=== PATIENT | male | born 1980 | race Caucasian/White ===

== ENCOUNTER 2017-02-10 22:33 | Emergency (ER) | payer MEDICAID ==
[~2017-02-10] VITALS: Ht 182.9 cm; Wt 81.6 kg
[~2017-02-10 22:33] MED LIST: FLEXERIL10 MG PO; HYDROCODON-ACETAMINO PO; IMODIUM MULTI-S1 TAB PO; INDOCIN25 MG; LEVAQUIN500 MG PO; LORTAB 5/500 501 TAB PO; MEDROL 4MG. DOSE4 MG PO; MOTRIN 400MG.400 MG PO; MOTRIN600 MG PO; NAPROSYN 500MG500 MG PO; NOMEDS; NORCO 325 MG-51 TAB PO; PHENERGAN W/CO473 ML PO; PHENERGAN25 M3 PO; PREDNISONE 20MG20 MG PO; TAMIFLU75 MG PO; TESSALON PERLE100 MG PO; ULTRAM 50 MG TA50 MG PO; VICODIN 7.5/501 EACH PO; ZOFRAN ODT8 M1 PO
[2017-02-10] MEDS ORDERED: PREDNISONE 10MG10 MG PO (22:45)
[2017-02-10] MEDS ORDERED: HYDROCODONE/ACE1 TA5 PO (22:46)
--- OUTSIDE RECORDS SUMMARY | 2017-02-10 23:03 | External Medical Summary Rpt ---
Author Author , ZEB CARRINGTON Address Unknown Phone [email or web address] Care Team Providers Care Assurance Senior Name Role Phone [facility] # [id number], Unavailable Unavailable [facility] # 48794 [facility] Unavailable Unavailable [facility] Unavailable Unavailable [id number] # [phone], [facility] [address] # 0393 Leland Luo Unavailable Unavailable ANGELA SOLANO, Leland Luo III, MD Purpose Continuity of Care Document - 10-13-2009 through 2016 Problems Code Diagnosis DOS Provider Status 843.9 843.9 10-29-2012 [place] [facility] F11.10 Opioid abuse, uncomplicat ed F11.20 Opioid dependence, uncomplicat ed F11.23 Opioid dependence with withdrawal Allergies, Adverse Reactions, Alerts Type Allergy to substance Adverse Reaction to Substance Substance Reaction Severity NO KNOWN ALLERGIES Unknown Unknown Medications Na ND Rx Da Fi Fi Am Da Di Ph RX Ph St me C No te ll ll ou ys ag ar # ys at rm s nt no ma ic us Or Da si cy ia de te s n re d CY 51 04 0 No CL 07 -1 OB 90 5- Lo EN 64 20 ng ZA 42 13 er CA 0 IN Ac E ti 10 ve MG TA BL ET OX 00 10 10 0 19 5 CV 58 No Ac YC 40 -0 -0 .0 S 66 t ti OD 60 3- 3- 00 PH 06 Av ve ON 51 20 20 AR ai E- 20 11 11 MA la AC 1 CY bl ET # e AM IN 05 OP 43 HE 7 N 5- 32 5 00 09 09 0 19 3 CV 58 No Ac 40 -2 -2 .0 S 57 t ti 60 6- 6- 00 PH 63 Av ve 35 20 20 AR ai 70 11 11 MA la 5 CY bl # e 05 43 7 OX 00 09 09 0 29 4 CV 58 No Ac YC 40 -1 -1 .0 S 49 t ti OD 60 9- 9- 00 PH 07 Av ve ON 51 20 20 AR ai E- 20 11 11 MA la AC 1 CY bl ET # e AM IN 05 OP 43 HE 7 N 5- 32 5 AM 00 09 09 0 21 7 CV 58 No Ac OX 78 -1 -1 .0 S 49 t ti IC 12 9- 9- 00 PH 08 Av ve IL 61 20 20 AR ai LI 30 11 11 MA la N 5 CY bl 50 # e 0 MG 05 43 CA 7 PS UL E CA 00 09 09 0 10 3 CV 58 No Ac OM 78 -1 -1 .0 S 49 t ti ET 11 9- 9 PH 09 Av ve PRECIADO 83 20 20 AR ai ZI 00 11 11 MA la NE 1 CY bl # e 25 05 MG 43 7 TA BL ET IB 55 09 09 0 40 20 CV 58 No Ac UP 11 -1 -1 .0 S 49 t ti RO 10 9- 9- 00 PH 12 Av ve FE 68 20 20 AR ai N 30 11 11 MA la 60 5 CY bl 0 # e MG 05 TA 43 BL 7 ET 00 09 09 0 12 3 CV 58 RO Ac 40 -0 -0 .0 S 37 SS ti 60 8- 8- 00 PH 32 ve 35 20 20 AR TR 70 11 11 MA AC 5 CY EY # B 05 43 7 CL 00 09 09 0 30 5 CV 58 RO Ac IN 09 -0 -0 .0 S 37 SS ti DA 33 8- 8- 00 PH 33 ve MY 17 20 20 AR TR CI 10 11 11 MA AC N 1 CY EY HC # B L 15 05 0 43 MG 7 CA PS UL E 00 09 09 0 12 3 CV 58 BU Ac 40 -0 -0 .0 S 37 TL ti 60 8- 8- 00 PH 32 ER ve 35 20 20 AR 70 11 11 MA RO 5 CY SS # TR 05 AC 43 EY 7 PI 00 08 08 2 30 30 CV 58 SC Ac RO 09 -2 -2 .0 S 24 PRECIADO ti XI 30 6- 6- 00 PH 38 CK ve CA 75 20 20 AR M 70 11 11 MA BR 20 1 CY IA # N MG 05 CA 43 PS 7 UL E TI 00 08 08 0 45 15 CV 58 SC Ac ZA 37 -1 -1 .0 S 07 PRECIADO ti NI 80 1- 1- 00 PH 26 CK ve DI 72 20 20 AR NE 41 11 11 MA BR 9 CY IA HC # N L 4 05 MG 43 7 TA BL ET NA 00 08 08 0 30 15 CV 58 SC Ac BU 09 -1 -1 .0 S 07 PRECIADO ti ME 31 1- 1- 00 PH 27 CK ve TO 01 20 20 AR NE 50 11 11 MA BR 1 CY IA 50 # N 0 MG 05 43 TA 7 BL ET AM 00 02 07 11 30 30 RI 87 OC Ac IT 60 -1 -1 .0 TE 09 ON ti RI 32 6- 5- 00 90 NE ve PT 21 20 20 AI LL YL 33 11 11 D IN 2 PH LEONID E AR HN HC MA L CY 25 03 MG 93 8 TA # B 03 93 TI 55 02 07 11 90 30 RI 87 OC Ac ZA 11 -1 -1 .0 TE 09 ON ti NI 10 6- 5- 00 87 NE ve DI 18 20 20 AI LL NE 01 11 11 D 5 PH LEONID HC AR HN L MA 4 CY MG 03 TA 93 BL 8 ET # 03 93 00 02 07 11 9. 30 RI 87 OC Ac 17 -1 -1 00 TE 09 ON ti 30 6- 5- 0 89 NE ve 75 20 20 AI LL 00 11 11 D 0 PH LEONID AR HN MA CY 03 93 8 # 03 93 CL 00 01 07 5 30 30 CV 55 OC Ac ON 09 -2 -0 .0 S 83 ON ti AZ 30 4- 3- 00 PH 48 NE ve EP 83 20 20 AR LL AM 30 11 11 MA 1 1 CY LEONID # HN MG 05 TA 43 BL 7 ET AM 00 02 06 11 30 30 RI 87 OC Ac IT 60 -1 -1 .0 TE 09 ON ti RI 32 6- 6- 00 90 NE ve PT 21 20 20 AI LL YL 33 11 11 D IN 2 PH LEONID E AR HN HC MA L CY 25 03 MG 93 8 TA # B 03 93 TI 55 02 06 11 90 30 RI 87 OC Ac ZA 11 -1 -1 .0 TE 09 ON ti NI 10 6- 6- 00 87 NE ve DI 18 20 20 AI LL NE 01 11 11 D 5 PH LEONID HC AR HN L MA 4 CY MG 03 TA 93 BL 8 ET # 03 93 00 02 06 11 9. 30 RI 87 OC Ac 17 -1 -1 00 TE 09 ON ti 30 6- 6- 0 89 NE ve 75 20 20 AI LL 00 11 11 D 0 PH LEONID AR HN MA CY 03 93 8 # 03 93 CL 00 01 05 5 30 30 CV 55 OC Ac ON 09 -2 -2 .0 S 83 ON ti AZ 30 4- 6- 00 PH 48 NE ve EP 83 20 20 AR LL AM 30 11 11 MA 1 1 CY LEONID # HN MG 05 TA 43 BL 7 ET 00 02 05 11 9. 30 RI 87 OC Ac 17 -1 -1 00 TE 09 ON ti 30 6- 3- 0 89 NE ve 75 20 20 AI LL 00 11 11 D 0 PH LEONID AR HN MA CY 03 93 8 # 03 93 AM 00 02 05 11 30 30 RI 87 OC Ac IT 60 -1 -1 .0 TE 09 ON ti RI 32 6- 3- 00 90 NE ve PT 21 20 20 AI LL YL 33 11 11 D IN 2 PH LEONID E AR HN HC MA L CY 25 03 MG 93 8 TA # B 03 93 TI 55 02 05 11 90 30 RI 87 OC Ac ZA 11 -1 -1 .0 TE 09 ON ti NI 10 6- 3- 00 87 NE ve DI 18 20 20 AI LL NE 01 11 11 D 5 PH LEONID HC AR HN L MA 4 CY MG 03 TA 93 BL 8 ET # 03 93 CA 00 04 04 0 5. 2 CV 56 TH Ac ED 59 -2 -2 00 S 97 OR ti NI 15 9- 9- 0 PH 37 NT ve SO 44 20 20 AR ON NE 30 11 11 MA 1 CY SH 20 # EL BY MG 05 43 TA 7 BL ET AM 00 04 04 0 20 10 CV 56 TH Ac OX 78 -2 -2 .0 S 97 OR ti IC 12 9- 9- 00 PH 38 NT ve IL 61 20 20 AR ON LI 30 11 11 MA N 5 CY SH 50 # EL 0 BY MG 05 43 CA 7 PS UL E CL 00 01 04 5 30 30 CV 55 OC Ac ON 09 -2 -2 .0 S 83 ON ti AZ 30 4- 7- 00 PH 48 NE ve EP 83 20 20 AR LL AM 30 11 11 MA 1 1 CY LEONID # HN MG 05 TA 43 BL 7 ET TI 55 02 04 11 90 30 RI 87 OC Ac ZA 11 -1 -1 .0 TE 09 ON ti NI 10 6- 5- 00 87 NE ve DI 18 20 20 AI LL NE 01 11 11 D 5 PH LEONID HC AR HN L MA 4 CY MG 03 TA 93 BL 8 ET # 03 93 00 02 04 11 9. 30 RI 87 OC Ac 17 -1 -1 00 TE 09 ON ti 30 6- 5- 0 89 NE ve 75 20 20 AI LL 00 11 11 D 0 PH LEONID AR HN MA CY 03 93 8 # 03 93 AM 00 02 04 11 30 30 RI 87 OC Ac IT 60 -1 -1 .0 TE 09 ON ti RI 32 6- 5- 00 90 NE ve PT 21 20 20 AI LL YL 33 11 11 D IN 2 PH LEONID E AR HN HC MA L CY 25 03 MG 93 8 TA # B 03 93 00 04 04 0 10 3 CV 56 WE Ac 40 -0 -0 .0 S 74 HR ti 60 8- 8- 00 PH 11 MA ve 35 20 20 AR N 70 11 11 MA II 5 CY I # WI LL 05 IA 43 M 7 E CL 00 01 03 5 30 30 CV 55 OC Ac ON 09 -2 -3 .0 S 83 ON ti AZ 30 4- 0- 00 PH 48 NE ve EP 83 20 20 AR LL AM 30 11 11 MA 1 1 CY LEONID # HN MG 05 TA 43 BL 7 ET TI 55 02 03 11 90 30 RI 87 OC Ac ZA 11 -1 -0 .0 TE 09 ON ti NI 10 6- 4- 00 87 NE ve DI 18 20 20 AI LL NE 01 11 11 D 5 PH LEONID HC AR HN L MA 4 CY MG 03 TA 93 BL 8 ET # 03 93 00 02 03 11 9. 30 RI 87 OC Ac 17 -1 -0 00 TE 09 ON ti 30 6- 4- 0 89 NE ve 75 20 20 AI LL 00 11 11 D 0 PH LEONID AR HN MA CY 03 93 8 # 03 93 AM 00 02 03 11 30 30 RI 87 OC Ac IT 60 -1 -0 .0 TE 09 ON ti RI 32 6- 4- 00 90 NE ve PT 21 20 20 AI LL YL 33 11 11 D IN 2 PH LEONID E AR HN HC MA L CY 25 03 MG 93 8 TA # B 03 93 CL 00 01 03 5 30 30 CV 55 OC Ac ON 09 -2 -0 .0 S 83 ON ti AZ 30 4- 2- 00 PH 48 NE ve EP 83 20 20 AR LL AM 30 11 11 MA 1 1 CY LEONID # HN MG 05 TA 43 BL 7 ET 00 04 01 5 9. 30 RI 83 OC Ac 17 -1 -3 00 TE 16 ON ti 30 3- 1- 0 18 NE ve 75 20 20 AI LL 00 10 11 D 0 PH LEONID AR HN MA CY 03 93 8 # 03 93 AM 00 08 01 5 30 30 RI 84 OC Ac IT 60 -2 -3 .0 TE 83 ON ti RI 32 4- 1- 00 37 NE ve PT 21 20 20 AI LL YL 22 10 11 D IN 1 PH LEONID E AR HN HC MA L CY 10 03 MG 93 8 TA # B 03 93 CL 00 01 01 5 30 30 CV 55 OC Ac ON 09 -2 -2 .0 S 83 ON ti AZ 30 4- 4- 00 PH 48 NE ve EP 83 20 20 AR LL AM 30 11 11 MA 1 1 CY LEONID # HN MG 05 TA 43 BL 7 ET 00 04 12 5 9. 30 RI 83 OC Ac 17 -1 -2 00 TE 16 ON ti 30 3- 8- 0 18 NE ve 75 20 20 AI LL 00 10 10 D 0 PH LEONID AR HN MA CY 03 93 8 # 03 93 AM 00 08 12 5 30 30 RI 84 OC Ac IT 60 -2 -2 .0 TE 83 ON ti RI 32 4- 8- 00 37 NE ve PT 21 20 20 AI LL YL 22 10 10 D IN 1 PH LEONID E AR HN HC MA L CY 10 03 MG 93 8 TA # B 03 93 CL 00 10 12 2 30 30 CV 54 OC Ac ON 09 -0 -0 .0 S 63 ON ti AZ 30 8- 5- 00 PH 50 NE ve EP 83 20 20 AR LL AM 30 10 10 MA 1 1 CY LEONID # HN MG 05 TA 43 BL 7 ET 00 04 11 5 9. 30 RI 83 OC Ac 17 -1 -3 00 TE 16 ON ti 30 3- 0- 0 18 NE ve 75 20 20 AI LL 00 10 10 D 0 PH LEONID AR HN MA CY 03 93 8 # 03 93 AM 00 08 11 5 30 30 RI 84 OC Ac IT 60 -2 -3 .0 TE 83 ON ti RI 32 4- 0- 00 37 NE ve PT 21 20 20 AI LL YL 22 10 10 D IN 1 PH LEONID E AR HN HC MA L CY 10 03 MG 93 8 TA # B 03 93 00 11 11 0 20 4 GR 98 IS Ac 40 -2 -2 .0 AN 35 ON ti 60 9- 9- 00 T 67 ve 36 20 20 CO DA 30 10 10 UN [address] UG S WI LL IA MS TO W CL 00 10 11 2 30 30 CV 54 OC Ac ON 09 -0 -0 .0 S 63 ON ti AZ 30 8- 8- 00 PH 50 NE ve EP 83 20 20 AR LL AM 30 10 10 MA 1 1 CY LEONID # HN MG 05 TA 43 BL 7 ET AM 00 08 10 5 30 30 RI 84 OC Ac IT 60 -2 -2 .0 TE 83 ON ti RI 32 4- 9- 00 37 NE ve PT 21 20 20 AI LL YL 22 10 10 D IN 1 PH LEONID E AR HN HC MA L CY 10 03 MG 93 8 TA # B 03 93 CL 00 10 10 2 30 30 CV 54 OC Ac ON 09 -0 -1 .0 S 63 ON ti AZ 30 8- 0- 00 PH 50 NE ve EP 83 20 20 AR LL AM 30 10 10 MA 1 1 CY LEONID # HN MG 05 TA 43 BL 7 ET 00 04 10 5 9. 30 RI 83 OC Ac 17 -1 -0 00 TE 16 ON ti 30 3- 4- 0 18 NE ve 75 20 20 AI LL 00 10 10 D 0 PH LEONID AR HN MA CY 03 93 8 # 03 93 AM 00 08 10 5 30 30 RI 84 OC Ac IT 60 -2 -0 .0 TE 83 ON ti RI 32 4- 1- 00 37 NE ve PT 21 20 20 AI LL YL 22 10 10 D IN 1 PH LEONID E AR HN HC MA L CY 10 03 MG 93 8 TA # B 03 93 CL 00 04 09 5 30 30 CV 52 OC Ac ON 09 -1 -1 .0 S 81 ON ti AZ 30 3- 0- 00 PH 07 NE ve EP 83 20 20 AR LL AM 30 10 10 MA 1 1 CY LEONID # HN MG 05 TA 43 BL 7 ET AM 00 08 09 5 30 30 RI 84 OC Ac IT 60 -2 -0 .0 TE 83 ON ti RI 32 4- 3- 00 37 NE ve PT 21 20 20 AI LL YL 22 10 10 D IN 1 PH LEONID E AR HN HC MA L CY 10 03 MG 93 8 TA # B 03 93 CL 00 04 08 5 30 30 CV 52 OC Ac ON 09 -1 -1 .0 S 81 ON ti AZ 30 3- 0- 00 PH 07 NE ve EP 83 20 20 AR LL AM 30 10 10 MA 1 1 CY LEONID # HN MG 05 TA 43 BL 7 ET DI 00 08 08 2. 1 RI 84 OC Ac AZ 17 -0 -0 00 TE 43 ON ti EP 23 4- 4- 0 70 NE ve AM 92 20 20 AI LL 5 67 10 10 D 0 PH LEONID MG AR HN MA TA CY BL ET 03 93 8 # 03 93 TI 55 08 08 4 60 30 RI 84 OC Ac ZA 11 -0 -0 .0 TE 43 ON ti NI 10 4- 4- 00 71 NE ve DI 17 20 20 AI LL NE 91 10 10 D 5 PH LEONID HC AR HN L MA 2 CY MG 03 TA 93 BL 8 ET # 03 93 CA 50 07 07 0 47 10 CV 53 SW Ac OM 38 -1 -1 3. S 75 EE ti ET 30 4- 4- 00 PH 46 NE ve PRECIADO 80 20 20 0 AR Y ZI 41 10 10 MA GR NE 6 CY EG -C # OR OD Y EI 05 D NE 43 7 SY RU P AV 00 07 07 0 10 10 CV 53 SO Ac EL 08 -1 -1 .0 S 75 KA ti OX 51 4- 4- 00 PH 45 N ve 73 20 20 AR BA 40 30 10 10 MA BA 0 1 CY TU MG # ND E TA 05 O BL 43 ET 7 CL 00 04 07 5 30 30 CV 52 OC Ac ON 09 -1 -0 .0 S 81 ON ti AZ 30 3- 8- 00 PH 07 NE ve EP 83 20 20 AR LL AM 30 10 10 MA 1 1 CY LEONID # HN MG 05 TA 43 BL 7 ET 00 06 06 0 15 3 CV 53 SC Ac 40 -1 -1 .0 S 45 PRECIADO ti 60 5- 5- 00 PH 72 CK ve 36 20 20 AR 00 10 10 MA BR 5 CY IA # N 05 43 7 CL 00 04 06 5 30 30 CV 52 OC Ac ON 09 -1 -1 .0 S 81 ON ti AZ 30 3- 0- 00 PH 07 NE ve EP 83 20 20 AR LL AM 30 10 10 MA 1 1 CY LEONID # HN MG 05 TA 43 BL 7 ET 00 05 06 1 30 7 CV 53 SC Ac 40 -2 -0 .0 S 28 PRECIADO ti 60 8- 3- 00 PH 16 CK ve 36 20 20 AR 00 10 10 MA BR 5 CY IA # N 05 43 7 CA 00 05 05 20 15 CV 53 SC Ac ED 59 -2 -2 .0 S 28 PRECIADO ti NI 15 8- 8- 00 PH 15 CK ve SO 44 20 20 AR NE 30 10 10 MA BR 1 CY IA 20 # N MG 05 43 TA 7 BL ET 00 05 05 1 30 7 CV 53 SC Ac 40 -2 -2 .0 S 28 PRECIADO ti 60 8- 8- 00 PH 16 CK ve 36 20 20 AR 00 10 10 MA BR 5 CY IA # N 05 43 7 CL 00 04 05 5 30 30 CV 52 OC Ac ON 09 -1 -1 .0 S 81 ON ti AZ 30 3- 2- 00 PH 07 NE ve EP 83 20 20 AR LL AM 30 10 10 MA 1 1 CY LEONID # HN MG 05 TA 43 BL 7 ET CL 00 04 04 5 30 30 CV 52 OC Ac ON 09 - -1 .0 S 81 ON ti AZ 30 3- 4- 00 PH 07 NE ve EP 83 20 20 AR LL AM 30 10 10 MA 1 1 CY LEONID # HN MG 05 TA 43 BL 7 ET TI 00 04 04 5 90 30 RI 82 OC Ac ZA 18 -1 -1 .0 TE 96 ON ti NI 50 3- 3- 00 80 NE ve DI 03 20 20 AI LL NE 45 10 10 D 1 PH LEONID HC AR HN L MA 2 CY MG 03 TA 93 BL 8 ET # 03 93 CL 00 03 03 90 30 CV 52 OC Ac ON 3 .0 S 63 ON ti AZ 30 0- 0- 00 PH 80 NE ve EP 83 20 20 AR LL AM 40 10 10 MA 2 1 CY LEONID # HN MG 05 TA 43 BL 7 ET Vital Signs 10-29-2012 17:47 Name Value Interpretat Reference Comment ion Range Body 98.2 [degF] Temperature BP 79 mm[Hg] Diastolic BP Systolic 128 mm[Hg] Heart 83 /min Rate/Pulse O2% 99 % Respiratory 16 /min Rate 10-29-2012 17:44 Name Value Interpretat Reference Comment ion Range BP 79 mm[Hg] Diastolic BP Systolic 128 mm[Hg] Heart 83 /min Rate/Pulse O2% 99 % Respiratory 16 /min Rate Encounters Encounter Start End Date Code Location Performer Type Date Emergency MARCIA Luo (ER) 3 17:17 3 17:48 [facility] Leland Bangura
--- OUTSIDE RECORDS SUMMARY | 2017-02-10 23:03 | External Medical Summary Rpt ---
Author Author , ZEB CARRINGTON Address Unknown Phone [email or web address] Care Team Providers Care Dog Behaviorist Name Role Phone [facility] # [id number], Unavailable Unavailable [facility] # [id number] [facility] Unavailable Unavailable [facility] Unavailable Unavailable [id number] # [phone], [facility] [address] # 0393 Leland Luo Unavailable Unavailable ANGELA SOLANO, Leland Luo III, MD Purpose Continuity of Care Document - 10-13-2009 through 2016 Problems Code Diagnosis DOS Provider Status 843.9 843.9 10-29-[address] [place] [address] [facility] F11.10 Opioid abuse, uncomplicat ed [...] 64 20 ng ZA 42 13 er VA 0 IN Ac E ti 10 ve [...] 05 43 CA 7 PS UL E VA 00 09 09 0 10 3 CV [...] 93 BL 8 ET # 03 93 VA 00 04 04 0 5. 2 CV [...] 93 BL 8 ET # 03 93 VA 50 07 07 0 47 10 CV [...] CY IA # N 05 43 7 VA 00 05 05 20 15 CV 53 [...] MARCIA Luo (ER) 3 17:17 3 17:48 [facility] Leland Bangura
--- OUTSIDE RECORDS SUMMARY | 2017-02-10 23:05 | External Medical Summary Rpt ---
Demographics Preferred Language Vietnamese Marital Status Unknown Sabianism Affiliation Unknown Race Unknown Ethnic Group Unknown Author Author , ZEB CARRINGTON Address Unknown Phone [email or web address] Care Team Providers Care Car Detailer Name Role Phone [facility] # [id number], Unavailable Unavailable [facility] # 66214 [facility] Unavailable Unavailable [facility] Unavailable Unavailable [id number] # [phone], [facility] [address] # [phone] Purpose Continuity of Care Document - 10-13-2009 through 2016 Medications Na ND Rx Da Fi Fi Am Da Di Ph RX Ph St me C No te ll ll ou ys ag ar # ys at rm s nt no ma ic us Or Da si cy ia de te s n re d OX 00 10 10 0 19 5 [...] 05 43 CA 7 PS UL E NV 00 09 09 0 10 3 CV 58 No Ac OM 78 -1 -1 .0 S 49 t ti ET 11 9- 9- 00 PH 09 Av ve PRECIADO 83 20 [...] 05 43 TA 7 BL ET 00 02 07 11 9. 30 RI 87 OC Ac 17 -1 -1 00 TE 09 ON ti 30 6- 5- 0 89 NE ve 75 20 20 AI LL 00 11 11 D 0 PH LEONID AR HN MA CY 03 93 8 # 03 93 AM 00 02 07 11 30 30 [...] 8 ET # 03 93 CL 00 01 07 5 30 30 CV 55 OC Ac ON 09 -2 -0 .0 S 83 ON ti AZ 30 4- 3- 00 PH 48 NE ve EP 83 20 20 AR LL AM 30 11 11 MA 1 1 CY LEONID # HN MG 05 TA 43 BL 7 ET TI 55 02 06 11 90 30 [...] 8 # 03 93 AM 00 02 06 11 30 30 RI 87 OC Ac IT 60 -1 -1 .0 TE 09 ON ti RI 32 6- 6- 00 90 NE ve PT 21 20 20 AI LL YL 33 11 11 D IN 2 PH LEONID E AR HN HC MA L CY 25 03 MG 93 8 TA # B 03 93 CL 00 01 05 5 30 30 CV 55 OC Ac ON 09 -2 -2 .0 S 83 ON ti AZ 30 4- 6- 00 PH 48 NE ve EP 83 20 20 AR LL AM 30 11 11 MA 1 1 CY LEONID # HN MG 05 TA 43 BL 7 ET TI 55 02 05 11 90 30 RI 87 OC Ac ZA 11 -1 -1 .0 TE 09 ON ti NI 10 6- 3- 00 87 NE ve DI 18 20 20 AI LL NE 01 11 11 D 5 PH LEONID HC AR HN L MA 4 CY MG 03 TA 93 BL 8 ET # 03 93 00 02 05 11 9. 30 RI [...] 93 8 TA # B 03 93 NV 00 04 04 0 5. 2 CV [...] 93 BL 8 ET # 03 93 NV 50 07 07 0 47 10 CV [...] CY IA # N 05 43 7 NV 00 05 05 20 15 CV 53 [...] 30 CV 52 OC Ac ON 3 3 .0 S 63 ON ti AZ 30 0 0- 00 PH 80 NE ve EP 83 20 20 AR LL AM 40 10 10 MA 2 1 CY LEONID # HN MG 05 TA 43 BL 7 ET
--- OUTSIDE RECORDS SUMMARY | 2017-02-10 23:05 | External Medical Summary Rpt ---
Demographics Preferred Language Slovenian Marital Status Unknown Yazdanism Affiliation Unknown Race Unknown Ethnic Group Unknown Author Author , ZEB CARRINGTON Address Unknown Phone [email or web address] Care Team Providers Care Service Technician Name Role Phone [facility] # [id number], Unavailable Unavailable [facility] # 15860 [facility] Unavailable Unavailable [facility] Unavailable Unavailable [id number] # [phone], [facility] [address] # [phone] Purpose Continuity of Care Document [...] 05 43 CA 7 PS UL E ME 00 09 09 0 10 3 CV [...] 93 8 TA # B 03 93 ME 00 04 04 0 5. 2 CV [...] 93 BL 8 ET # 03 93 ME 50 07 07 0 47 10 CV [...] CY IA # N 05 43 7 ME 00 05 05 20 15 CV 53 [...]
--- OUTSIDE RECORDS SUMMARY | 2017-02-10 23:06 | External Medical Summary Rpt ---
Author Author ZEB Forbes, [employer] Organization [employer] Address Unknown Phone Unavailable Results Hep Prf-Ac Observa Value Referen Units Interpr Notes Date tion ce etation Range Hepatit Negativ Negativ No No No Oct 14 is B e e informa informa informa 2017 virus tion in tion in tion in 9:59 AM surface source source source Ag data data data [Presen ce] in Serum by Immunoa ssay Hep B Positiv Negativ No Abnorma No Oct 14 Core e e informa l informa 2017 IgM tion in tion in 11:49 source source AM data data Hepatit Negativ Negativ No No No Oct 14 is A e e informa informa informa 2017 virus tion in tion in tion in 9:57 AM Ab source source source [Units/ data data data volume] in Serum by Radioim munoass ay (ARJUN) Hep C Positiv Negativ No Abnorma High Oct 14 Ab e e informa l 2016 tion in cutoff 11:49 source ratio AM data (>= 5, Archite ct Anti-HC V). [facility] are Laborat ory recomme nds collect ing a new specime n and testing for Hepatit is C RNA Quantit ative PCR to confirm positiv ity and provide a baselin e viral load for monitor ing treatme nt efficac y. Mg Observa Value Referen Units Interpr Notes Date tion ce etation Range Magnesi 1.9 1.6 - mg/dL No No Oct 13 um 2.4 informa informa 2016 [Moles/ tion in tion in 4:26 PM volume] source source in data data Serum or Plasma TSH Observa Value Referen Units Interpr Notes Date tion ce etation Range Thyrotr 0.117 0.270 - mcIU/mL Low No Oct 13 opin 4.200 informa 2017 [Units/ tion in 4:25 PM volume] source in data Serum or Plasma GGT Observa Value Referen Units Interpr Notes Date tion ce etation Range Gamma 236 8 - 61 IU/L High No Oct 13 glutamy informa 2017 l tion in 4:25 PM transfe source rase data [Enzyma tic activit y/volum e] in Serum or Plasma Hemogram Observa Value Referen Units Interpr Notes Date tion ce etation Range LEUKOCY 10.7 4.0 - x10(3)/ No No Oct 13 KATHY 11.0 mcL informa informa 2017 tion in tion in 3:46 PM source source data data Erythro 5.12 4.30 - x10(6)/ No Oct 13 cytes 5.81 mcL informa informa 2016 [#/volu tion in tion in 3:46 PM me] in source source Blood data data by Automat ed count Hemoglo 15.3 13.5 - gm/dL No Oct 13 bin 17.1 informa informa 2016 [Mass/v tion in tion in 3:46 PM olume] source source in data data Blood Hematoc 44.8 38.9 - % No Oct 13 rit 51.6 informa informa 2017 [Volume tion in tion in 3:46 PM source source Fractio data data n] of Blood by Automat ed count Erythro 87.6 82.5 - fL No Oct 13 cyte 99.8 informa informa 2017 mean tion in tion in 3:46 PM corpusc source source ular data data volume [Entiti c volume] by Automat ed count Erythro 29.8 27.0 - pg No Oct 13 cyte 34.3 informa informa 2016 mean tion in tion in 3:46 PM corpusc source source ular data data hemoglo bin [Entiti c mass] by Automat ed count Erythro 34.1 32.1 - gm/dL No Oct 13 cyte 35.3 informa informa 2016 mean tion in tion in 3:46 PM corpusc source source ular data data hemoglo bin concent ration [Mass/v olume] by Automat ed count Erythro 13.7 11.5 - % No Oct 13 cyte 15.0 informa informa 2017 distrib tion in tion in 3:46 PM ution source source width data data [Ratio] by Automat ed count Platele 195 144 - x10(3)/ No No Oct 13 ts 423 mcL informa informa 2017 [#/volu tion in tion in 3:46 PM me] in source source Blood data data by Automat ed count MPV 10.0 6.8 - fL No No Oct 13 10.8 informa informa 2017 tion in tion in 3:46 PM source source data data UA Observa Value Referen Units Interpr Notes Date tion ce etation Range UA Light No No No No Sep 29 Color Yellow informa informa informa informa 2017 tion in tion in tion in tion in 5:56 PM source source source source data data data data UA Clear Clear No No No Sep 29 Appear informa informa informa 2017 tion in tion in tion in 5:56 PM source source source data data data UA Negativ Negativ No No No Sep 29 Glucose e e informa informa informa 2017 tion in tion in tion in 5:56 PM source source source data data data UA Negativ Negativ No No No Sep 29 Ketones e e informa informa informa 2017 tion in tion in tion in 5:56 PM source source source data data data UA Negativ Negativ No No No Sep 29 Blood e e informa informa informa 2017 tion in tion in tion in 5:56 PM source source source data data data UA pH 7.0 4.8 - No No Referen Sep 29 8.0 informa informa ce 2017 tion in tion in range 5:56 PM source source valid data data for random specime ns only. UA Negativ Negativ No No No Sep 29 Protein e e informa informa informa 2017 tion in tion in tion in 5:56 PM source source source data data data UA Normal <=1 No No No Sep 29 Urobili mg/dl informa informa informa 2017 nogen tion in tion in tion in 5:56 PM source source source data data data UA Negativ Negativ No No No Sep 29 Nitrite e e informa informa informa 2017 tion in tion in tion in 5:56 PM source source source data data data UA Leuk Negativ Negativ No No No Sep 29 Est e e informa informa informa 2017 tion in tion in tion in 5:56 PM source source source data data data UA Spec 1.008 1.001 - No No Referen Sep 29 Grav 1.035 informa informa ce 2017 tion in tion in range 5:56 PM source source valid data data for random specime ns only. Flu A/B Observa Value Referen Units Interpr Notes Date tion ce etation Range Influ A Negativ No No No Negativ Sep 29 Ag e informa informa informa e 2017 tion in tion in tion in results 4:54 PM source source source in data data data patient s with high clinica l suspici on should be verfied with RT-PCR, availab le as Respira tory Viral Mini Panel in Epic.\. br\\.br \The WHO recomme nds molecul ar testing (Respir atory Viral DNA Test) during periods of low influen za activit y instead of rapid tests. Should rapid tests be used, then both positiv e and negativ e test results should be confirm ed by a molecul ar method. The WHO also recomme nds confirm atory testing by a molecul ar method (Respir atory Viral DNA Test) for all negativ e rapid test results during seasona l occurre nce of influen za. Influ B Negativ No No No No Sep 29 Ag e informa informa informa informa 2016 tion in tion in tion in tion in 4:54 PM source source source source data data data data Lipase Observa Value Referen Units Interpr Notes Date tion ce etation Range Lipase 40 13 - 60 IU/L No No Sep 29 Lvl informa informa 2016 tion in tion in 4:55 PM source source data data Auto Diff Observa Value Referen Units Interpr Notes Date tion ce etation Range Neutrop 68.0 No % No No Sep 29 hils informa informa informa 2016 [#/volu tion in tion in tion in 4:39 PM me] in source source source Blood data data data by Automat ed count Lymphoc 21.5 No % No No Sep 29 ytes informa informa informa 2016 [#/volu tion in tion in tion in 4:39 PM me] in source source source Blood data data data by Automat ed count Monocyt 9.5 No % No No Mar 16 es informa informa informa 2017 [#/volu tion in tion in tion in 4:39 PM me] in source source source Blood data data data by Automat ed count Eos 0.7 No % No No Mar 16 Percent informa informa informa 2017 tion in tion in tion in 4:39 PM source source source data data data Baso 0.3 No % No No Mar 16 Percent informa informa informa 2017 tion in tion in tion in 4:39 PM source source source data data data Neut# 8.6 1.8 - x10(3)/ High No Mar 16 7.7 mcL informa 2017 tion in 4:39 PM source data Lymph# 2.7 0.6 - x10(3)/ No No Mar 16 4.8 mcL informa informa 2017 tion in tion in 4:39 PM source source data data [place]# 1.2 0.0 - x10(3)/ No No Sep 16 1.3 mcL informa informa 2017 tion in tion in 4:39 PM source source data data Eos# 0.1 0.0 - x10(3)/ No No Mar 16 0.5 mcL informa informa 2017 tion in tion in 4:39 PM source source data data Baso# 0.0 0.0 - x10(3)/ No No Mar 16 0.2 mcL informa informa 2017 tion in tion in 4:39 PM source source data data CBC Observa Value Referen Units Interpr Notes Date tion ce etation Range LEUKOCY 12.6 4.0 - x10(3)/ High No Mar 16 KATHY 11.0 mcL informa 2017 tion in 4:39 PM source data Erythro 5.53 4.30 - x10(6)/ No No Sep 16 cytes 5.81 mcL informa informa 2017 [#/volu tion in tion in 4:39 PM me] in source source Blood data data by Automat ed count Hemoglo 16.3 13.5 - gm/dL No No Mar 16 bin 17.1 informa informa 2017 [Mass/v tion in tion in 4:39 PM olume] source source in data data Blood Hematoc 48.2 38.9 - % No No Sep 29 rit 51.6 informa informa 2017 [Volume tion in tion in 4:39 PM source source Fractio data data n] of Blood by Automat ed count Erythro 87.1 82.5 - fL No No Sep 29 cyte 99.8 informa informa 2017 mean tion in tion in 4:39 PM corpusc source source ular data data volume [Entiti c volume] by Automat ed count Erythro 29.4 27.0 - pg No No Sep 29 cyte 34.3 informa informa 2016 mean tion in tion in 4:39 PM corpusc source source ular data data hemoglo bin [Entiti c mass] by Automat ed count Erythro 33.8 32.1 - gm/dL No No Sep 29 cyte 35.3 informa informa 2016 mean tion in tion in 4:39 PM corpusc source source ular data data hemoglo bin concent ration [Mass/v olume] by Automat ed count Erythro 13.6 11.5 - % No No Sep 29 cyte 15.0 informa informa 2016 distrib tion in tion in 4:39 PM ution source source width data data [Ratio] by Automat ed count Platele 258 144 - x10(3)/ No No Sep 29 ts 423 mcL informa informa 2016 [#/volu tion in tion in 4:39 PM me] in source source Blood data data by Automat ed count MPV 8.4 6.8 - fL No No Sep 29 10.8 informa informa 2017 tion in tion in 4:39 PM source source data data CK Observa Value Referen Units Interpr Notes Date tion ce etation Range Creatin 38 39 - IU/L Low No Jun 19 e 308 informa 2016 kinase tion in 12:12 [Enzyma source PM tic data activit y/volum e] in Serum or Plasma Lipase Observa Value Referen Units Interpr Notes Date tion ce etation Range Lipase 28 13 - 60 IU/L No No Jun 19 Lvl informa informa 2016 tion in tion in 12:06 source source PM data data Auto Diff Observa Value Referen Units Interpr Notes Date tion ce etation Range Neutrop 72.9 No % No No Jun 19 hils informa informa informa 2016 [#/volu tion in tion in tion in 11:53 me] in source source source AM Blood data data data by Automat ed count Lymphoc 16.2 No % No No Dec 4 ytes informa informa informa 2015 [#/volu tion in tion in tion in 11:53 me] in source source source AM Blood data data data by Automat ed count Monocyt 9.5 No % No No Dec 4 es informa informa informa 2015 [#/volu tion in tion in tion in 11:53 me] in source source source AM Blood data data data by Automat ed count Eos 0.4 No % No No Dec 4 Percent informa informa informa 2016 tion in tion in tion in 11:53 source source source AM data data data Baso 1.0 No % No No Dec 4 Percent informa informa informa 2016 tion in tion in tion in 11:53 source source source AM data data data Neut# 4.0 1.8 - x10(3)/ No No Dec 4 7.7 mcL informa informa 2015 tion in tion in 11:53 source source AM data data Lymph# 0.9 0.6 - x10(3)/ No No Dec 4 4.8 mcL informa informa 2016 tion in tion in 11:53 source source AM data data [place]# 0.5 0.0 - x10(3)/ No No Dec 4 1.3 mcL informa informa 2016 tion in tion in 11:53 source source AM data data Eos# 0.0 0.0 - x10(3)/ No No Dec 4 0.5 mcL informa informa 2015 tion in tion in 11:53 source source AM data data Baso# 0.1 0.0 - x10(3)/ No No Dec 4 0.2 mcL informa informa 2016 tion in tion in 11:53 source source AM data data CBC Observa Value Referen Units Interpr Notes Date tion ce etation Range LEUKOCY 5.5 4.0 - x10(3)/ No No Dec 4 KATHY 11.0 mcL informa informa 2015 tion in tion in 11:53 source source AM data data Erythro 4.95 4.30 - x10(6)/ No No Dec 4 cytes 5.81 mcL informa informa 2016 [#/volu tion in tion in 11:53 me] in source source AM Blood data data by Automat ed count Hemoglo 14.7 13.5 - gm/dL No Jun 19 bin 17.1 informa informa 2016 [Mass/v tion in tion in 11:53 olume] source source AM in data data Blood Hematoc 44.0 38.9 - % No Jun 19 rit 51.6 informa informa 2016 [Volume tion in tion in :53 source source AM Fractio data data n] of Blood by Automat ed count Erythro 89.0 82.5 - fL No Jun 19 cyte 99.8 informa informa 2016 mean tion in tion in :53 corpusc source source AM ular data data volume [Entiti c volume] by Automat ed count Erythro 29.7 27.0 - pg No Jun 19 cyte 34.3 informa informa 2016 mean tion in tion in :53 corpusc source source AM ular data data hemoglo bin [Entiti c mass] by Automat ed count Erythro 33.3 32.1 - gm/dL No Jun 19 cyte 35.3 informa informa 2016 mean tion in tion in 11:53 corpusc source source AM ular data data hemoglo bin concent ration [Mass/v olume] by Automat ed count Erythro 14.7 11.5 - % No Jun 19 cyte 15.0 informa informa 2016 distrib tion in tion in :53 ution source source AM width data data [Ratio] by Automat ed count Platele 159 144 - x10(3)/ No No Jun 19 ts 423 mcL informa informa 2016 [#/volu tion in tion in 11:53 me] in source source AM Blood data data by Automat ed count MPV 10.0 6.8 - fL No Jun 19 10.8 informa informa 2016 tion in tion in 11:53 source source AM data data Diff Observa Value Referen Units Interpr Notes Date tion ce etation Range RBC Normal No No No No Jun 19 Morph informa informa informa informa 2016 tion in tion in tion in tion in 11:53 source source source source AM data data data data XR CHEST PA AND LATERAL Observa Value Referen Units Interpr Notes Date tion ce etation Range TEXT PROCEDU No No No No Feb 09 DIAGNOS RE: PA informa informa informa informa 2011 and tion in tion in tion in tion in 10:09 BATTERY lateral source source source source AM chest data data data data 02/10/20 12.HALINA CATION: Postop fever.F INDINGS : PA and lateral chest. Compari son 9. Heart size andpulm onary vascula rityrem ain normal. Lungs remain clear. No infiltr ates, effusio n, orpneum othorax .IMPRES VISHAL: No acute finding s in the chest.
--- OUTSIDE RECORDS SUMMARY | 2017-02-10 23:06 | External Medical Summary Rpt ---
Demographics Preferred Language Portuguese Marital Status Unknown Holiness Affiliation Unknown Race Unknown Ethnic Group Unknown Author Author , ZEB CARRINGTON Address Unknown Phone Immunization Unable to retrieve immunization data due to connection failure with Immunization Registry. Please try again later.
--- OUTSIDE RECORDS SUMMARY | 2017-02-10 23:06 | External Medical Summary Rpt ---
[...] data (>= 5, Archite ct Anti-HC V). [facility] are Laborat ory recomme nds collect ing [...] in 4:39 PM source source data data [place]# 1.2 0.0 - x10(3)/ No No Sep [...] in 11:53 source source AM data data [place]# 0.5 0.0 - x10(3)/ No No Dec [...]
--- OUTSIDE RECORDS SUMMARY | 2017-02-10 23:06 | External Medical Summary Rpt ---
Demographics Preferred Language Japanese Marital Status Unknown Yazidi Affiliation Unknown Race Unknown Ethnic Group Unknown Author Author , ZEB CARRINGTON Address Unknown Phone Immunization Unable to retrieve immunization data due to connection failure with Immunization Registry. Please try again later.
[2017-02-10 23:23] LABS: HEMOGLOBIN 13.9 g/dL (14.1-18.0); LYMPH % 20.1 % (10-50)
[2017-02-10 23:24] LABS: LYMPH # 2.1 K/mm3 (0.7-4.5)
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
[2017-02-11 00:25] LABS: URINE BILIRUBIN - DIPSTICK NEGATIVE (NEG); URINE BLOOD NEGATIVE (NEG)
[2017-02-11 00:39] LABS: AMPHETAMINES/METAMPHETAMINES POSITIVE ng/mL (<1000)
[2017-02-11 07:14] VITALS: BP 104/59
--- NOTE | 2017-02-11 08:20 | RADIOLOGY REPORT PS360 ---
CHEST-AP VIEW ONLY COMPARISON: CT scan chest for 04/12/2015 HISTORY: Patient with known lymphoma complaining left chest wall pain TECHNIQUE: PA chest FINDINGS: This is a very poor inspiratory effort resulting in crowding of vascular markings at the lung bases. There is no definite pneumonic infiltrate. Cardiac size is normal and the vascularity is otherwise normal. There is no pneumothorax. IMPRESSION: Poor inspiration, no definite acute chest pathology noted
--- NOTE | 2017-02-11 08:24 | RADIOLOGY REPORT PS360 ---
[id number] VIEWS COMPARISON: CT scan the chest 11/09/2015 HISTORY: Left chest wall pain TECHNIQUE: PA chest and oblique views left RIBS FINDINGS: This is a somewhat poor inspiration. The left lung field is clear. All the left ribs 1 through 12 are visualized and there are questionable nondisplaced fractures of the left seventh and eighth ribs in the anterior axillary line. There is no pneumothorax. IMPRESSION: Probable nondisplaced fractures left seventh and eighth ribs
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
== END 2017-02-11 07:30 | disposition home or self-care (01) ==
LOC: ER 22:33
PROVIDERS: Emergency Medicine
DX: S22.42XA Multiple fractures of ribs, left side, initial encounter for closed fracture (principal); Y04.0XXA Assault by unarmed brawl or fight, initial encounter